=== PATIENT | male | born 1935 | race Hispanic/Latino ===

== ENCOUNTER 2017-08-27 17:56 | Observation (INO) | payer OTHER ==
[~2017-08-27] VITALS: Ht 167.6 cm; Wt 57.7 kg
[2017-08-27 18:16] LABS: BASOPHILS % (AUTO) 0.9 % (0.0-5.0); HEMATOCRIT 44.4 % (42-54); LYMPHOCYTES % (AUTO) 21.1 % (21.0-51.0); MEAN CORPUSCULAR HEMOGLOBIN 30.8 pg (27.0-33.0); MONOCYTES % (AUTO) 8.1 % (3.0-13.0); NEUTROPHILS % (AUTO) 67.9 % (40.0-77.0); PLATELET COUNT (AUTO) 202 K/uL (130-400); RED BLOOD CELL COUNT(AUTO) 5.05 MIL/uL (4.50-6.20); RED CELL DISTRIBUTION WIDTH 14.6 % (11.0-15.5); WHITE BLOOD COUNT (AUTO) 5.9 K/uL (4.8-10.8)
[2017-08-27 18:24] LABS: CREATININE 0.6 mg/dL (0.5-1.5); POTASSIUM 4.3 mmol/L (3.5-5.1)
[2017-08-27 18:27] LABS: INR 0.95 (0.85-1.15); PARTIAL THROMBOPLASTIN TIME 27.6 SEC (26.3-35.5)
[2017-08-27] MEDS ORDERED: SODIUM CHLORIDE 0.9% 1000ML 1,000 ML IV ONE (18:37)
[2017-08-27] MEDS ORDERED: HYDRALAZINE HCL 20 MG/ML VIAL ONE (18:37)
[2017-08-27 18:38] LABS: BILIRUBIN,TOTAL 0.5 mg/dL (0.2-1.0); CREATINE KINASE MB 5.3 ng/mL (0.5-3.6); TOTAL PROTEIN, SERUM 7.9 g/dL (6.0-8.3)
[2017-08-27 19:41] LABS: APPEARANCE,URINE Clear (CLEAR); BILIRUBIN,URINE Negative (NEGATIVE); COLOR,URINE Yellow (YELLOW); GLUCOSE, URINE (UA) Negative (NEGATIVE); KETONES,URINE 15 mg/dL (NEGATIVE); LEUKOCYTE ESTERASE ,URINE Negative (NEGATIVE); NITRATE,URINE Negative (NEGATIVE); OCCULT BLOOD,URINE Negative (NEGATIVE); PROTEIN,URINE Negative (NEGATIVE); UROBILINOGEN,URINE 0.2 mg/dL (0.2-1.0)
[2017-08-27] MEDS ORDERED: ASPIRIN 325 MG TABLET ONE (21:07)
[2017-08-28] MEDS ORDERED: HYDRALAZINE HCL 20 MG/ML VIAL ONE (01:16)
[2017-08-28] MEDS ORDERED: ONDANSETRON HCL 4 MG/2 ML VIAL IV PRN (02:30)
[2017-08-28] MEDS ORDERED: ACETAMINOPHEN 325 MG TAB PO PRN ×2 (02:30)
[2017-08-28] MEDS ORDERED: HYDRALAZINE HCL 20 MG/ML VIAL IV PRN (02:30)
[2017-08-28] MEDS ORDERED: ZOLPIDEM TARTRATE 5 MG TAB PO PRN (02:30)
[2017-08-28 05:11] LABS: HEMATOCRIT 41.4 % (42-54); MEAN CORPUSCULAR VOLUME 88.8 fL (79-99); PLATELET COUNT (AUTO) 181 K/uL (130-400); RED BLOOD CELL COUNT(AUTO) 4.67 MIL/uL (4.50-6.20); RED CELL DISTRIBUTION WIDTH 14.4 % (11.0-15.5)
[2017-08-28 05:33] LABS: CREATININE 0.4 mg/dL (0.5-1.5); MAGNESIUM 1.9 mg/dL (1.80-2.40); PHOSPHORUS 3.6 mg/dL (2.5-4.9); POTASSIUM 3.4 mmol/L (3.5-5.1); THYROID STIMULATING HORMONE 3.48 uIU/mL (0.36-3.74)
[2017-08-28] MEDS ORDERED: GADOBENATE DIMEGLUMINE 10 ML IV ONE (07:36)
[2017-08-28] MEDS: PANTOPRAZOLE SODIUM 40 MG TABLET.DR PO SCH (09:00)
[2017-08-28 09:30] VITALS: BP 164/66
[2017-08-28 11:00] VITALS: BP 160/74
[2017-08-28] MEDS ORDERED: OMEP20CA10 PO (11:00)
[2017-08-28] MEDS: ENOXAPARIN SODIUM 40 MG/0.4 ML SYRINGE SQ SCH (14:03)
[2017-08-28] MEDS: ASPIRIN 81 MG EC TAB PO SCH (14:03)
[2017-08-28] MEDS: AMLODIPINE BESYLATE 5 MG TAB PO SCH (14:03)
[2017-08-28 16:00] VITALS: BP 145/77
[2017-08-28 19:40] VITALS: BP 126/58
[2017-08-28 23:22] VITALS: BP 129/63
[2017-08-29 04:07] VITALS: BP 116/59
[2017-08-29 08:00] VITALS: BP_SYST 126; BP_SYST 145; BP_SYST 147; BP_DIAS 64; BP_DIAS 69; BP_DIAS 70
[2017-08-29] MEDS: ASPIRIN 81 MG EC TAB PO SCH (08:25)
[2017-08-29] MEDS: PANTOPRAZOLE SODIUM 40 MG TABLET.DR PO SCH (08:25)
[2017-08-29] MEDS: AMLODIPINE BESYLATE 5 MG TAB PO SCH (08:25)
[2017-08-29] MEDS: ENOXAPARIN SODIUM 40 MG/0.4 ML SYRINGE SQ SCH (08:28)
[2017-08-29 11:58] VITALS: BP 124/59
[2017-08-29 16:00] VITALS: BP 128/54
[2017-08-29 19:55] VITALS: BP 125/64
[2017-08-30] VITALS (8 sets, daily range): BP systolic 112–145; BP diastolic 53–81
[2017-08-30] MEDS: AMLODIPINE BESYLATE 5 MG TAB PO SCH (07:51)
[2017-08-30] MEDS: PANTOPRAZOLE SODIUM 40 MG TABLET.DR PO SCH (07:51)
[2017-08-30] MEDS: ASPIRIN 81 MG EC TAB PO SCH (07:51)
[2017-08-30] MEDS: ENOXAPARIN SODIUM 40 MG/0.4 ML SYRINGE SQ SCH (07:54)
[2017-08-30] MEDS ORDERED: AEC81 PO (13:37)
[2017-08-30] MEDS ORDERED: AMLO5TAB4 PO (13:37)
== END 2017-08-30 18:00 | disposition home or self-care (01) ==
LOC: EDH 17:56 → EDHIP 08-28 01:35 → INTOOBSV 08-28 01:35 → 2AH 08-28 09:02
PROVIDERS: ADMIT Family Medicine; ATTEND Family Medicine
DX: G45.9 Transient cerebral ischemic attack, unspecified (principal); G71.0 Muscular dystrophy; I10 Essential (primary) hypertension; K29.70 Gastritis, unspecified, without bleeding; L08.9 Local infection of the skin and subcutaneous tissue, unspecified; Z82.49 Family history of ischemic heart disease and other diseases of the circulatory system
CPT/HCPCS: 36415 ×2; 70450; 70553; 71045; 80048; 80053; 81003; 82550; 82553; 83735; 84100; 84443; 84484; 85025; 85027; 85610; 85730; 93005; 93306; 93880; 96372 ×2; 97116; 97161; 99285; A9577; G0378 ×28; G8978; G8979; G8980; G8981; G8982; G8983; J0360 ×2; J1650 ×2; J7030

== ENCOUNTER → 2018-11-05 | Outpatient (CLI) | payer OTHER ==
[~2018-11-05] MED LIST: AEC81 PO; AMLO5TAB4 PO; OMEP20CA10 PO
== END | disposition home or self-care (01) ==
LOC: SHCH 14:01
PROVIDERS: ATTEND Internal Medicine Cardiovascular Disease
DX: I65.23 Occlusion and stenosis of bilateral carotid arteries (principal)
CPT/HCPCS: 93880

== ENCOUNTER → 2019-09-16 | Outpatient (CLI) | payer OTHER ==
[~2019-09-16] MED LIST changes: -OMEP20CA10 PO; +OMEP20CA12 PO
== END | disposition home or self-care (01) ==
LOC: SHCH 14:08
PROVIDERS: ATTEND Internal Medicine Cardiovascular Disease
DX: I65.23 Occlusion and stenosis of bilateral carotid arteries (principal)
CPT/HCPCS: 93880

== ENCOUNTER → 2021-04-01 | Outpatient (CLI) | payer OTHER | END | disposition home or self-care (01) | LOC: SHCH 13:29 | PROVIDERS: ATTEND Internal Medicine Cardiovascular Disease | DX: I87.2 Venous insufficiency (chronic) (peripheral) (principal); K21.9 Gastro-esophageal reflux disease without esophagitis | CPT/HCPCS: 93970 ==

== ENCOUNTER 2021-05-19 13:00 | Inpatient (IN) | payer MEDICARE, OTHER ==
[~2021-05-19] VITALS: Ht 149.9 cm; Wt 54.4 kg
[2021-05-19 13:36] LABS: BASOPHILS % (AUTO) 0.6 % (0.0-5.0); EOSINOPHILS % (AUTO) 1.7 % (0.0-8.0); HEMATOCRIT 40.5 % (42-54); LYMPHOCYTES % (AUTO) 8.4 % (21.0-51.0); MEAN CORPUSCULAR HEMOGLOBIN 30.7 pg (27.0-33.0); MEAN CORPUSCULAR HGB CONC 33.1 g/dL (32.0-36.0); MEAN CORPUSCULAR VOLUME 92.7 fL (79-99); MONOCYTES % (AUTO) 6.6 % (3.0-13.0); NEUTROPHILS % (AUTO) 82.2 % (40.0-77.0); PLATELET COUNT (AUTO) 162 K/uL (130-400); RED BLOOD CELL COUNT(AUTO) 4.37 MIL/uL (4.50-6.20); RED CELL DISTRIBUTION WIDTH 13.2 % (11.0-15.5); WHITE BLOOD COUNT (AUTO) 7.7 K/uL (4.8-10.8)
[2021-05-19 13:44] LABS: CREATININE 0.7 mg/dL (0.5-1.5); POTASSIUM 4.7 mmol/L (3.5-5.1)
[2021-05-19 13:58] LABS: ALBUMIN 3.7 g/dL (3.5-5.0); BILIRUBIN,TOTAL 0.6 mg/dL (0.2-1.0); TOTAL PROTEIN, SERUM 7.6 g/dL (6.0-8.3)
[2021-05-19 14:19] LABS: APPEARANCE,URINE Clear (CLEAR); BILIRUBIN,URINE Negative (NEGATIVE); COLOR,URINE Yellow (YELLOW); GLUCOSE, URINE (UA) Negative (NEGATIVE); KETONES,URINE 15 mg/dL (NEGATIVE); LEUKOCYTE ESTERASE ,URINE Trace (NEGATIVE); NITRATE,URINE Negative (NEGATIVE); OCCULT BLOOD,URINE Moderate (NEGATIVE); PROTEIN,URINE Negative (NEGATIVE); UROBILINOGEN,URINE 0.2 mg/dL (0.2-1.0)
[2021-05-19 14:52] LABS: BACTERIA,URINE Rare /HPF (None Seen)
[2021-05-19 14:53] LABS: SQUAMOUS EPITHELIAL CELL,UR Rare /HPF (0-2)
[2021-05-19] MEDS ORDERED: ACETAMINOPHEN 325 MG TAB PO PRN ×2 (15:00)
[2021-05-19] MEDS ORDERED: DiphenhydrAMINE HCL 50 MG/ML VIAL IV PRN (15:00)
[2021-05-19] MEDS ORDERED: CEFTRIAXONE 1G VIAL IVP ONE (15:00)
[2021-05-19] MEDS ORDERED: ACETAMINOPHEN WITH CODEINE 1 TAB TAB PO PRN (15:00)
[2021-05-19] MEDS ORDERED: ONDANSETRON 4MG INJ IV PRN (15:00)
[2021-05-19] MEDS ORDERED: DIPHENHYDRAMINE HCL 25 MG CAPSULE PO PRN (15:00)
[2021-05-19] MEDS ORDERED: CEFTRIAXONE 1G VIAL ONE (16:15)
[2021-05-19] MEDS: CLINDAMYCIN IVPB 600MG/50ML 50 ML IV SCH ×2 (16:28→23:28)
[2021-05-19] MEDS: FAMOTIDINE 20MG VIAL IV SCH (20:46)
[2021-05-20] MEDS ORDERED: ATOR40TA71 PO (02:33)
[2021-05-20] MEDS ORDERED: DOCU100C33 PO (02:33)
[2021-05-20] MEDS ORDERED: ASPI-1012 PO (02:33)
[2021-05-20] MEDS ORDERED: LATA7.5D OP (02:33)
[2021-05-20 06:19] LABS: HEMATOCRIT 37.5 % (42-54); MEAN CORPUSCULAR HEMOGLOBIN 30.6 pg (27.0-33.0); MEAN CORPUSCULAR HGB CONC 33.1 g/dL (32.0-36.0); MEAN CORPUSCULAR VOLUME 92.6 fL (79-99); RED BLOOD CELL COUNT(AUTO) 4.05 MIL/uL (4.50-6.20); RED CELL DISTRIBUTION WIDTH 13.2 % (11.0-15.5); WHITE BLOOD COUNT (AUTO) 6.4 K/uL (4.8-10.8)
[2021-05-20 06:36] LABS: ALBUMIN 3.4 g/dL (3.5-5.0); BILIRUBIN,TOTAL 0.5 mg/dL (0.2-1.0); CREATININE 0.6 mg/dL (0.5-1.5); TOTAL PROTEIN, SERUM 6.8 g/dL (6.0-8.3)
[2021-05-20] MEDS: CLINDAMYCIN IVPB 600MG/50ML 50 ML IV SCH ×3 (07:02→23:59)
[2021-05-20] MEDS: FAMOTIDINE 20MG VIAL IV SCH ×2 (09:02→21:59)
[2021-05-20] MEDS: ENOXAPARIN SODIUM 30 MG/0.3 ML SQ SCH (09:03)
[2021-05-20] MEDS ORDERED: DOCUSATE SODIUM 100 MG CAP PO PRN (16:30)
[2021-05-20 21:18] LABS: BASOPHILS % (AUTO) 0.6 % (0.0-5.0); LYMPHOCYTES % (AUTO) 10.6 % (21.0-51.0); MEAN CORPUSCULAR HEMOGLOBIN 30.8 pg (27.0-33.0); MEAN CORPUSCULAR HGB CONC 33.6 g/dL (32.0-36.0); MEAN CORPUSCULAR VOLUME 91.8 fL (79-99); NEUTROPHILS % (AUTO) 75.3 % (40.0-77.0); PLATELET COUNT (AUTO) 159 K/uL (130-400); RED BLOOD CELL COUNT(AUTO) 4.25 MIL/uL (4.50-6.20); RED CELL DISTRIBUTION WIDTH 13.2 % (11.0-15.5); WHITE BLOOD COUNT (AUTO) 6.3 K/uL (4.8-10.8)
[2021-05-20 21:36] LABS: CREATININE 0.6 mg/dL (0.5-1.5); POTASSIUM 4.7 mmol/L (3.5-5.1)
[2021-05-20 21:39] LABS: ABG HCO3 19.6 mmol/L (21.0-28.0); ABG OXYGEN SATURATION 97.1 % (95.0-99.0); ABG PCO2 32 mmHg (35-48)
[2021-05-20 21:41] LABS: ALBUMIN 3.6 g/dL (3.5-5.0); BILIRUBIN,TOTAL 0.6 mg/dL (0.2-1.0); MAGNESIUM 2.1 mg/dL (1.80-2.40); PHOSPHORUS 4.1 mg/dL (2.5-4.9); TOTAL PROTEIN, SERUM 7.4 g/dL (6.0-8.3)
[2021-05-20] MEDS: LATANOPROST 2.5 ML DROPS OP SCH (21:59)
[2021-05-20] MEDS: ATORVASTATIN 40 MG TABLET PO SCH (21:59)
[2021-05-20 22:02] LABS: APPEARANCE,URINE Clear (CLEAR); BILIRUBIN,URINE Negative (NEGATIVE); COLOR,URINE Yellow (YELLOW); GLUCOSE, URINE (UA) Negative (NEGATIVE); KETONES,URINE 15 mg/dL (NEGATIVE); LEUKOCYTE ESTERASE ,URINE Negative (NEGATIVE); NITRATE,URINE Negative (NEGATIVE); OCCULT BLOOD,URINE Negative (NEGATIVE); PROTEIN,URINE Negative (NEGATIVE); UROBILINOGEN,URINE 0.2 mg/dL (0.2-1.0)
[2021-05-20 22:10] LABS: AMPHET/METH SCREEN,URINE NEGATIVE (NEGATIVE); BARBITURATE SCREEN, URINE NEGATIVE (NEGATIVE); BENZODIAZEPINES SCREEN,URINE NEGATIVE (NEGATIVE); CANNABINOID SCREEN,URINE NEGATIVE (NEGATIVE); COCAINE SCREEN,URINE NEGATIVE (NEGATIVE); OPIATE SCREEN,URINE NEGATIVE (NEGATIVE); PHENCYCLIDINE SCREEN,URINE NEGATIVE (NEGATIVE)
[2021-05-20 23:04] LABS: AMMONIA < 10 umol/L (11-32)
[2021-05-21] VITALS (7 sets, daily range): BP systolic 137–165; BP diastolic 56–79
[2021-05-21] MEDS: CLINDAMYCIN IVPB 600MG/50ML 50 ML IV SCH (00:01)
[2021-05-21 06:21] LABS: HEMATOCRIT 39.1 % (42-54); MEAN CORPUSCULAR HEMOGLOBIN 30.6 pg (27.0-33.0); MEAN CORPUSCULAR HGB CONC 33.5 g/dL (32.0-36.0); MEAN CORPUSCULAR VOLUME 91.4 fL (79-99); RED BLOOD CELL COUNT(AUTO) 4.28 MIL/uL (4.50-6.20); RED CELL DISTRIBUTION WIDTH 13.3 % (11.0-15.5); WHITE BLOOD COUNT (AUTO) 6.6 K/uL (4.8-10.8)
[2021-05-21 06:41] LABS: CREATININE 0.6 mg/dL (0.5-1.5); POTASSIUM 4.2 mmol/L (3.5-5.1)
[2021-05-21] MEDS: ASPIRIN 81 MG EC TAB PO SCH (08:14)
[2021-05-21] MEDS: FAMOTIDINE 20MG VIAL IV SCH (08:14)
[2021-05-21] MEDS: ENOXAPARIN SODIUM 30 MG/0.3 ML SQ SCH (08:15)
[2021-05-21] MEDS: CEFTRIAXONE 2GM VIAL IVP SCH (11:25)
[2021-05-21] MEDS ORDERED: VANCOMYCIN PROTOCOL PER PHARMACY IV SCH (14:00)
[2021-05-21] MEDS: 0.9% NACL 250ML 250 ML IV SCH (17:11)
[2021-05-21] MEDS: VANCOMYCIN 750MG VIAL IVPB SCH (17:12)
[2021-05-21] MEDS ORDERED: PANTOPRAZOLE 40 MG TAB DR PO SCH (19:30)
[2021-05-21] MEDS: ATORVASTATIN 40 MG TABLET PO SCH (21:19)
[2021-05-21] MEDS: ENOXAPARIN SODIUM 60 MG/0.6 ML SQ SCH (21:20)
[2021-05-21] MEDS: LATANOPROST 2.5 ML DROPS OP SCH (21:28)
[2021-05-22 03:43] VITALS: BP 144/56
[2021-05-22] MEDS: VANCOMYCIN 750MG VIAL IVPB SCH ×2 (05:34→16:39)
[2021-05-22] MEDS: 0.9% NACL 250ML 250 ML IV SCH ×2 (05:34→16:39)
[2021-05-22 06:38] LABS: BASOPHILS % (AUTO) 0.8 % (0.0-5.0); EOSINOPHILS % (AUTO) 9.7 % (0.0-8.0); HEMATOCRIT 35.5 % (42-54); MEAN CORPUSCULAR HEMOGLOBIN 30.6 pg (27.0-33.0); MEAN CORPUSCULAR HGB CONC 33.2 g/dL (32.0-36.0); MEAN CORPUSCULAR VOLUME 92.2 fL (79-99); MONOCYTES % (AUTO) 11.4 % (3.0-13.0); NEUTROPHILS % (AUTO) 58.7 % (40.0-77.0); PLATELET COUNT (AUTO) 164 K/uL (130-400); RED BLOOD CELL COUNT(AUTO) 3.85 MIL/uL (4.50-6.20); RED CELL DISTRIBUTION WIDTH 13.6 % (11.0-15.5); WHITE BLOOD COUNT (AUTO) 5.2 K/uL (4.8-10.8)
[2021-05-22 06:42] LABS: CREATININE 0.6 mg/dL (0.5-1.5); POTASSIUM 3.9 mmol/L (3.5-5.1)
[2021-05-22] MEDS: ASPIRIN 81 MG EC TAB PO SCH (08:30)
[2021-05-22] MEDS: PANTOPRAZOLE 40 MG TAB DR PO SCH (08:30)
[2021-05-22] MEDS: ENOXAPARIN SODIUM 60 MG/0.6 ML SQ SCH (08:31)
[2021-05-22 08:51] VITALS: BP 124/70
[2021-05-22] MEDS: CEFTRIAXONE 2GM VIAL IVP SCH (11:04)
[2021-05-22 11:38] VITALS: BP 127/48
[2021-05-22 17:01] VITALS: BP 143/48
[2021-05-22 20:24] VITALS: BP 143/42
[2021-05-22] MEDS: ATORVASTATIN 40 MG TABLET PO SCH (21:00)
[2021-05-22] MEDS: APIXABAN 5 MG TABLET PO SCH (21:00)
[2021-05-22] MEDS: LATANOPROST 2.5 ML DROPS OP SCH (21:03)
[2021-05-23] VITALS (7 sets, daily range): BP systolic 128–161; BP diastolic 40–61
[2021-05-23] MEDS: VANCOMYCIN 750MG VIAL IVPB SCH ×2 (05:11→17:03)
[2021-05-23] MEDS: 0.9% NACL 250ML 250 ML IV SCH ×2 (05:11→17:03)
[2021-05-23 06:40] LABS: BASOPHILS % (AUTO) 0.7 % (0.0-5.0); EOSINOPHILS % (AUTO) 9.9 % (0.0-8.0); HEMATOCRIT 35.7 % (42-54); LYMPHOCYTES % (AUTO) 20.9 % (21.0-51.0); MEAN CORPUSCULAR HEMOGLOBIN 30.4 pg (27.0-33.0); MEAN CORPUSCULAR HGB CONC 33.3 g/dL (32.0-36.0); MEAN CORPUSCULAR VOLUME 91.1 fL (79-99); MONOCYTES % (AUTO) 9.7 % (3.0-13.0); NEUTROPHILS % (AUTO) 58.6 % (40.0-77.0); PLATELET COUNT (AUTO) 159 K/uL (130-400); RED BLOOD CELL COUNT(AUTO) 3.92 MIL/uL (4.50-6.20); RED CELL DISTRIBUTION WIDTH 13.4 % (11.0-15.5); WHITE BLOOD COUNT (AUTO) 4.4 K/uL (4.8-10.8)
[2021-05-23 06:53] LABS: CREATININE 0.6 mg/dL (0.5-1.5); POTASSIUM 4.4 mmol/L (3.5-5.1)
[2021-05-23] MEDS: ASPIRIN 81 MG EC TAB PO SCH (10:01)
[2021-05-23] MEDS: APIXABAN 5 MG TABLET PO SCH ×2 (10:01→20:28)
[2021-05-23] MEDS: POLYETHYLENE GLYCOL 3350 17 GM POWD.PACK PO SCH (10:01)
[2021-05-23] MEDS: PANTOPRAZOLE 40 MG TAB DR PO SCH (10:01)
[2021-05-23] MEDS: CEFTRIAXONE 2GM VIAL IVP SCH (10:01)
[2021-05-23] MEDS: ATORVASTATIN 40 MG TABLET PO SCH (20:28)
[2021-05-23] MEDS: LATANOPROST 2.5 ML DROPS OP SCH (20:29)
[2021-05-24 04:00] VITALS: BP 110/59
[2021-05-24] MEDS: 0.9% NACL 250ML 250 ML IV SCH ×2 (04:45→16:22)
[2021-05-24] MEDS: VANCOMYCIN 750MG VIAL IVPB SCH ×2 (04:45→16:22)
[2021-05-24 05:43] LABS: BASOPHILS % (AUTO) 0.6 % (0.0-5.0); EOSINOPHILS % (AUTO) 8.3 % (0.0-8.0); HEMATOCRIT 35.6 % (42-54); LYMPHOCYTES % (AUTO) 18.7 % (21.0-51.0); MEAN CORPUSCULAR HEMOGLOBIN 30.7 pg (27.0-33.0); MEAN CORPUSCULAR HGB CONC 33.1 g/dL (32.0-36.0); MEAN CORPUSCULAR VOLUME 92.7 fL (79-99); MONOCYTES % (AUTO) 9.6 % (3.0-13.0); NEUTROPHILS % (AUTO) 62.4 % (40.0-77.0); PLATELET COUNT (AUTO) 161 K/uL (130-400); RED BLOOD CELL COUNT(AUTO) 3.84 MIL/uL (4.50-6.20); RED CELL DISTRIBUTION WIDTH 13.3 % (11.0-15.5); WHITE BLOOD COUNT (AUTO) 5.1 K/uL (4.8-10.8)
[2021-05-24 05:52] LABS: CREATININE 0.7 mg/dL (0.5-1.5); POTASSIUM 4.1 mmol/L (3.5-5.1)
[2021-05-24 07:54] VITALS: BP 134/56
[2021-05-24] MEDS: POLYETHYLENE GLYCOL 3350 17 GM POWD.PACK PO SCH (09:00)
[2021-05-24] MEDS: ASPIRIN 81 MG EC TAB PO SCH (09:12)
[2021-05-24] MEDS: APIXABAN 5 MG TABLET PO SCH ×2 (09:12→20:25)
[2021-05-24] MEDS: PANTOPRAZOLE 40 MG TAB DR PO SCH (09:12)
[2021-05-24] MEDS: CEFTRIAXONE 2GM VIAL IVP SCH (11:45)
[2021-05-24 12:00] VITALS: BP 145/52
[2021-05-24 16:00] VITALS: BP 157/35
[2021-05-24 19:54] VITALS: BP 121/45
[2021-05-24] MEDS: LATANOPROST 2.5 ML DROPS OP SCH (20:25)
[2021-05-24] MEDS: ATORVASTATIN 40 MG TABLET PO SCH (20:25)
[2021-05-24 23:08] VITALS: BP 118/45
[2021-05-25 03:45] VITALS: BP 145/49
[2021-05-25 05:09] LABS: BASOPHILS % (AUTO) 0.9 % (0.0-5.0); EOSINOPHILS % (AUTO) 8.8 % (0.0-8.0); LYMPHOCYTES % (AUTO) 19.5 % (21.0-51.0); MEAN CORPUSCULAR HEMOGLOBIN 30.5 pg (27.0-33.0); MEAN CORPUSCULAR HGB CONC 33.4 g/dL (32.0-36.0); MEAN CORPUSCULAR VOLUME 91.4 fL (79-99); MONOCYTES % (AUTO) 12.2 % (3.0-13.0); NEUTROPHILS % (AUTO) 58.2 % (40.0-77.0); PLATELET COUNT (AUTO) 183 K/uL (130-400); RED BLOOD CELL COUNT(AUTO) 3.83 MIL/uL (4.50-6.20); RED CELL DISTRIBUTION WIDTH 13.4 % (11.0-15.5); WHITE BLOOD COUNT (AUTO) 4.7 K/uL (4.8-10.8)
[2021-05-25 05:21] LABS: CREATININE 0.6 mg/dL (0.5-1.5); POTASSIUM 4.1 mmol/L (3.5-5.1)
[2021-05-25] MEDS: 0.9% NACL 250ML 250 ML IV SCH (05:30)
[2021-05-25] MEDS: VANCOMYCIN 750MG VIAL IVPB SCH (05:30)
[2021-05-25 08:00] VITALS: BP 136/62
[2021-05-25] MEDS ORDERED: AMLODIPINE 5 MG TAB PO SCH (09:00)
[2021-05-25] MEDS: APIXABAN 5 MG TABLET PO SCH (09:52)
[2021-05-25] MEDS: POLYETHYLENE GLYCOL 3350 17 GM POWD.PACK PO SCH (09:52)
[2021-05-25] MEDS: ASPIRIN 81 MG EC TAB PO SCH (09:53)
[2021-05-25] MEDS: PANTOPRAZOLE 40 MG TAB DR PO SCH (09:53)
[2021-05-25] MEDS ORDERED: APIX5TAB PO (11:42)
[2021-05-25 12:00] VITALS: BP 118/60
[2021-05-25] MEDS: CEFTRIAXONE 2GM VIAL IVP SCH (12:03)
[2021-05-25 16:00] VITALS: BP 114/49
[2021-05-26] MEDS ORDERED: VANCOMYCIN 500MG+NS 100ML 100 ML IV SCH (09:00)
== END 2021-05-25 19:30 | DRG 603 ==
LOC: EDH 13:00 → EDHIP 14:47 → 3AH 05-21 01:23
PROVIDERS: ADMIT Hospitalist; ATTEND Hospitalist
DX: L03.116 Cellulitis of left lower limb (principal); I82.812 Embolism and thrombosis of superficial veins of left lower extremity; I82.412 Acute embolism and thrombosis of left femoral vein; G71.00 Muscular dystrophy, unspecified; I10 Essential (primary) hypertension; Z20.822 Contact with and (suspected) exposure to COVID-19; I25.10 Atherosclerotic heart disease of native coronary artery without angina pectoris; E78.5 Hyperlipidemia, unspecified; E11.51 Type 2 diabetes mellitus with diabetic peripheral angiopathy without gangrene; R58 Hemorrhage, not elsewhere classified; R13.12 Dysphagia, oropharyngeal phase; R53.81 Other malaise; H40.9 Unspecified glaucoma; G89.29 Other chronic pain; Z79.01 Long term (current) use of anticoagulants; Z83.3 Family history of diabetes mellitus; Z83.438 Family history of other disorder of lipoprotein metabolism and other lipidemia; Z83.6 Family history of other diseases of the respiratory system; Z82.49 Family history of ischemic heart disease and other diseases of the circulatory system; Z80.9 Family history of malignant neoplasm, unspecified
CPT/HCPCS: 36415; 36600; 70450; 70551; 71045; 73700; 74230; 80048; 80053; 80202; 80305; 81001; 81003; 82140; 82330; 82435; 82550; 82803; 82947; 82948; 83605; 83735; 83874; 84100; 84132; 84145; 84295; 84484; 85018; 85025; 85027; 85651; 86140; 87635; 92610; 92611; 93005; 93971; 99291; G0378; J0696; J1650; J3490; J7050

== ENCOUNTER 2023-06-15 17:55 | Emergency (ER) | payer OTHER ==
[~2023-06-15] VITALS: Ht 167.6 cm; Wt 56.7 kg
[~2023-06-15 17:55] MED LIST changes: -AEC81 PO; +ASPI-1521 PO; +ATOR40TA71 PO; +DOCU100C33 PO; +LATA7.5D OP; +LOSA-417 PO; +METF-444 PO
[2023-06-15 18:54] LABS: BASOPHILS # (AUTO) 0.05 K/uL (0.00-0.20); BASOPHILS % (AUTO) 0.6 % (0.0-5.0); EOSINOPHILS # (AUTO) 0.11 K/uL (0.00-0.70); EOSINOPHILS % (AUTO) 1.3 % (0.0-8.0); HEMATOCRIT 37.8 % (42-54); IMMATURE GRANULOCYTE ABSOLUTE 0.12 K/uL (0-1); LYMPHOCYTES # (AUTO) 0.7 K/uL (1.0-4.8); LYMPHOCYTES % (AUTO) 8.8 % (21.0-51.0); MEAN CORPUSCULAR HEMOGLOBIN 28.8 pg (27.0-33.0); MEAN CORPUSCULAR HGB CONC 33.3 g/dL (32.0-36.0); MEAN CORPUSCULAR VOLUME 86.5 fL (79-99); MONOCYTES # (AUTO) 0.7 K/uL (0.1-1.0); MONOCYTES % (AUTO) 8.8 % (3.0-13.0); NEUTROPHILS # (AUTO) 6.5 K/uL (1.8-7.7); PLATELET COUNT (AUTO) 188 K/uL (130-400); RED BLOOD CELL COUNT(AUTO) 4.37 MIL/uL (4.50-6.20); RED CELL DISTRIBUTION WIDTH 14.7 % (11.0-15.5); WHITE BLOOD COUNT (AUTO) 8.2 K/uL (4.8-10.8)
[2023-06-15 19:06] LABS: CREATININE 0.6 mg/dL (0.5-1.5); POTASSIUM 4.8 mmol/L (3.5-5.1)
[2023-06-15 19:11] LABS: ALBUMIN 2.3 g/dL (3.5-5.0); BILIRUBIN,TOTAL 0.4 mg/dL (0.2-1.0); TOTAL PROTEIN, SERUM 6.5 g/dL (6.0-8.3)
[2023-06-15] MEDS ORDERED: 0.9%NACL 1000ML 1,000 ML IV ONE (19:30)
[2023-06-15] MEDS ORDERED: IOHEXOL-350 75 ML VIAL IV ONE (19:49)
[2023-06-15 19:56] LABS: AMYLASE 169 U/L (25-115)
[2023-06-15 20:43] LABS: BILIRUBIN,URINE NEGATIVE (NEGATIVE); GLUCOSE, URINE (UA) NEGATIVE (NEGATIVE); KETONES,URINE NEGATIVE (NEGATIVE); LEUKOCYTE ESTERASE ,URINE NEGATIVE Leu/uL (NEGATIVE); NITRATE,URINE NEGATIVE (NEGATIVE); OCCULT BLOOD,URINE LARGE (NEGATIVE); PROTEIN,URINE NEGATIVE (NEGATIVE); UROBILINOGEN,URINE 0.2 mg/dL (0.2-1.0)
[2023-06-15 20:47] LABS: ADD UA MICROSCOPIC YES; APPEARANCE,URINE HAZY (CLEAR); COLOR,URINE YELLOW (YELLOW)
[2023-06-15 20:53] LABS: RBC,URINE TNTC /HPF (0-1); SQUAMOUS EPITHELIAL CELL,UR RARE /HPF (0-2); WBC,URINE 0-1 /HPF (0-1)
[2023-06-15 21:54] VITALS: BP 115/53; PULSE 67; RESP 14; O2SAT 97
== END 2023-06-15 21:58 | disposition home or self-care (01) ==
LOC: EDH 17:55
DX: N39.0 Urinary tract infection, site not specified (principal); I10 Essential (primary) hypertension; E11.9 Type 2 diabetes mellitus without complications; J18.9 Pneumonia, unspecified organism; Z79.82 Long term (current) use of aspirin; Z79.84 Long term (current) use of oral hypoglycemic drugs; Z79.899 Other long term (current) drug therapy; Z98.890 Other specified postprocedural states
CPT/HCPCS: 99285; 74177; 96360; 71045; 96361; 82150; 84484; 80053; 83690; 85025; 83605; 81001; 36415; 51701; 93005; Q9967

== ENCOUNTER 2023-08-01 14:15 | Inpatient (IN) | payer OTHER ==
[~2023-08-01] VITALS: Ht 167.6 cm; Wt 54.7 kg
[2023-08-01 14:59] LABS: BASOPHILS # (AUTO) 0.05 K/uL (0.00-0.20); BASOPHILS % (AUTO) 1.1 % (0.0-5.0); EOSINOPHILS # (AUTO) 0.76 K/uL (0.00-0.70); EOSINOPHILS % (AUTO) 16.6 % (0.0-8.0); IMMATURE GRANULOCYTE ABSOLUTE 0.01 K/uL (0-1); LYMPHOCYTES # (AUTO) 1.2 K/uL (1.0-4.8); LYMPHOCYTES % (AUTO) 25.5 % (21.0-51.0); MEAN CORPUSCULAR HEMOGLOBIN 29.8 pg (27.0-33.0); MEAN CORPUSCULAR HGB CONC 32.5 g/dL (32.0-36.0); MEAN CORPUSCULAR VOLUME 91.6 fL (79-99); MONOCYTES # (AUTO) 0.5 K/uL (0.1-1.0); MONOCYTES % (AUTO) 11.8 % (3.0-13.0); NEUTROPHILS # (AUTO) 2.1 K/uL (1.8-7.7); NEUTROPHILS % (AUTO) 44.8 % (40.0-77.0); PLATELET COUNT (AUTO) 143 K/uL (130-400); RED BLOOD CELL COUNT(AUTO) 2.62 MIL/uL (4.50-6.20); RED CELL DISTRIBUTION WIDTH 15.9 % (11.0-15.5); WHITE BLOOD COUNT (AUTO) 4.6 K/uL (4.8-10.8)
[2023-08-01 15:10] LABS: ALBUMIN 2.7 g/dL (3.5-5.0); BILIRUBIN,TOTAL 0.3 mg/dL (0.2-1.0); CREATININE 1.1 mg/dL (0.5-1.5); POTASSIUM 4.9 mmol/L (3.5-5.1); TOTAL PROTEIN, SERUM 6.8 g/dL (6.0-8.3)
[2023-08-01] MEDS ORDERED: ONDANSETRON 4MG INJ IV PRN (20:00)
[2023-08-01] MEDS ORDERED: POTASSIUM CHLORIDE 20MEQ/100ML 100 ML IV PRN (20:30)
[2023-08-01] MEDS ORDERED: GLUCAGON 1MG KIT 1 MG ML IM PRN (20:30)
[2023-08-01] MEDS ORDERED: ATOR40TA71 PEG (21:46)
[2023-08-01] MEDS ORDERED: DOXA2TAB2 PEG (21:46)
[2023-08-01] MEDS ORDERED: FINA5TAB41 PEG (21:46)
[2023-08-01] MEDS ORDERED: AEC81 PEG (21:46)
[2023-08-01] MEDS: 0.9%NACL 1000ML 1,000 ML IV SCH (21:51)
[2023-08-01] MEDS: PANTOPRAZOLE 40 MG/VIAL IVP SCH (21:51)
[2023-08-01 22:00] VITALS: BP 128/58; PULSE 65; RESP 16
[2023-08-02] VITALS (9 sets, daily range): BP systolic 103–141; BP diastolic 46–65; PULSE 56–83; RESP 16–18; O2SAT 95–99
[2023-08-02] MEDS: INSULIN HUMULIN R 100 UNIT/ML 3ML SQ SCH
[2023-08-02 05:41] LABS: BASOPHILS # (AUTO) 0.04 K/uL (0.00-0.20); BASOPHILS % (AUTO) 0.7 % (0.0-5.0); EOSINOPHILS # (AUTO) 0.88 K/uL (0.00-0.70); EOSINOPHILS % (AUTO) 14.7 % (0.0-8.0); HEMATOCRIT 23.8 % (42-54); IMMATURE GRANULOCYTE ABSOLUTE 0.03 K/uL (0-1); LYMPHOCYTES # (AUTO) 1.1 K/uL (1.0-4.8); LYMPHOCYTES % (AUTO) 17.7 % (21.0-51.0); MEAN CORPUSCULAR HGB CONC 32.8 g/dL (32.0-36.0); MEAN CORPUSCULAR VOLUME 91.5 fL (79-99); MONOCYTES # (AUTO) 0.5 K/uL (0.1-1.0); NEUTROPHILS # (AUTO) 3.5 K/uL (1.8-7.7); NEUTROPHILS % (AUTO) 57.4 % (40.0-77.0); PLATELET COUNT (AUTO) 130 K/uL (130-400); RED CELL DISTRIBUTION WIDTH 16.1 % (11.0-15.5)
[2023-08-02 06:01] LABS: ALBUMIN 2.5 g/dL (3.5-5.0); BILIRUBIN,TOTAL 0.4 mg/dL (0.2-1.0); MAGNESIUM 1.9 mg/dL (1.80-2.40); POTASSIUM 4.7 mmol/L (3.5-5.1); TOTAL PROTEIN, SERUM 6.4 g/dL (6.0-8.3)
[2023-08-02 06:06] LABS: % IRON SATURATION 13.6 % (30-44)
[2023-08-02 08:10] LABS: HEMATOCRIT 24.8 % (42-54)
[2023-08-02] MEDS: LACTATED RINGERS 1000ML 1,000 ML IV SCH (13:09)
[2023-08-02 14:51] LABS: HEMATOCRIT 25.9 % (42-54)
[2023-08-02 15:57] LABS: SARS-CoV-2, RNA, NAAT NEGATIVE SARS CoV-2 (NEGATIVE)
[2023-08-02 19:48] LABS: HEMATOCRIT 24.2 % (42-54)
[2023-08-02] MEDS: BALSAM PERU/CASTOR OIL 60 GM TUBE TP SCH (22:21)
[2023-08-03] VITALS (29 sets, daily range): BP systolic 129–159; BP diastolic 41–85; PULSE 52–129; RESP 10–18; O2SAT 97–100
[2023-08-03] MEDS: DEXTROSE 50%-WATER 50 ML DISP.SYRIN IV PRN (00:20)
[2023-08-03 01:49] LABS: HEMATOCRIT 23.3 % (42-54)
[2023-08-03] MEDS: DEXTROSE 5 %-0.45 % NACL 1,000 ML IV SCH (12:57)
[2023-08-03] MEDS ORDERED: PROPOFOL 10 MG/ML 20ML VIAL IV ONE (14:37)
[2023-08-03] MEDS: PEG 3350/NA SULF,BICARB,CL/KCL 4000 ML SOLN PO ONE (17:29)
[2023-08-03] MEDS: LACTULOSE 20 GM/30 ML UDCUP PO ONE ×2 (17:29→19:54)
[2023-08-03] MEDS: INSULIN HUMULIN R 100 UNIT/ML 3ML SQ SCH (20:17)
[2023-08-03] MEDS ORDERED: POTASSIUM CHLORIDE 10% ELIXIR 20 MEQ/15 ML UDCUP PO PRN (22:00)
[2023-08-03] MEDS ORDERED: KCL 20 MEQ ERTAB PO PRN (22:00)
[2023-08-04] VITALS (9 sets, daily range): BP systolic 104–141; BP diastolic 49–72; PULSE 52–67; RESP 14–18; O2SAT 98–100
[2023-08-04 12:34] LABS: HEMATOCRIT 21.2 % (42-54); MEAN CORPUSCULAR HEMOGLOBIN 30.4 pg (27.0-33.0); MEAN CORPUSCULAR HGB CONC 34.4 g/dL (32.0-36.0); MEAN CORPUSCULAR VOLUME 88.3 fL (79-99); RED BLOOD CELL COUNT(AUTO) 2.4 MIL/uL (4.50-6.20); RED CELL DISTRIBUTION WIDTH 15.7 % (11.0-15.5); WHITE BLOOD COUNT (AUTO) 4.5 K/uL (4.8-10.8)
[2023-08-04 12:44] LABS: CREATININE 0.7 mg/dL (0.5-1.5); POTASSIUM 3.9 mmol/L (3.5-5.1)
[2023-08-04 12:53] LABS: ALBUMIN 2.1 g/dL (3.5-5.0); BILIRUBIN,TOTAL 0.2 mg/dL (0.2-1.0); MAGNESIUM 1.4 mg/dL (1.80-2.40); TOTAL PROTEIN, SERUM 5.6 g/dL (6.0-8.3)
[2023-08-04] MEDS: MAGNESIUM 2GM PREMIX 50ML 50 ML IV PRN (18:45)
[2023-08-05] VITALS (8 sets, daily range): BP systolic 111–139; BP diastolic 43–75; PULSE 62–69; RESP 14–19; O2SAT 99–100
[2023-08-05] MEDS ORDERED: PANT40TA PO (12:40)
[2023-08-06 03:55] VITALS: BP 120/61; PULSE 60; RESP 18
[2023-08-06 08:00] VITALS: BP 129/49; PULSE 63; RESP 18; O2SAT 100
[2023-08-06 12:00] VITALS: BP 120/54; PULSE 66; RESP 18
[2023-08-06 16:00] VITALS: BP 134/58; PULSE 70; RESP 16
== END 2023-08-06 17:00 | disposition home health service (06) | DRG 377 ==
LOC: EDH 14:15 → EDHIP 19:53 → 3AH 21:21
PROVIDERS: ADMIT Internal Medicine; ATTEND Internal Medicine
PROC: 0DB98ZX Excision of Duodenum, Via Natural or Artificial Opening Endoscopic, Diagnostic (ICD-10-PCS; principal; 2023-08-03)
PROC: 0DB68ZX Excision of Stomach, Via Natural or Artificial Opening Endoscopic, Diagnostic (ICD-10-PCS; 2023-08-03)
PROC: 0DB38ZX Excision of Lower Esophagus, Via Natural or Artificial Opening Endoscopic, Diagnostic (ICD-10-PCS; 2023-08-03)
DX: K29.01 Acute gastritis with bleeding (principal); R53.2 Functional quadriplegia; E44.0 Moderate protein-calorie malnutrition; N17.9 Acute kidney failure, unspecified; D62 Acute posthemorrhagic anemia; Z68.1 Body mass index [BMI] 19.9 or less, adult; Z20.822 Contact with and (suspected) exposure to COVID-19; E86.0 Dehydration; R53.81 Other malaise; K21.9 Gastro-esophageal reflux disease without esophagitis; L98.429 Non-pressure chronic ulcer of back with unspecified severity; G71.00 Muscular dystrophy, unspecified; E11.9 Type 2 diabetes mellitus without complications; E78.00 Pure hypercholesterolemia, unspecified; E83.42 Hypomagnesemia; I10 Essential (primary) hypertension; R13.12 Dysphagia, oropharyngeal phase; R32 Unspecified urinary incontinence; Z74.01 Bed confinement status; Z82.49 Family history of ischemic heart disease and other diseases of the circulatory system; Z82.5 Family history of asthma and other chronic lower respiratory diseases; Z86.73 Personal history of transient ischemic attack (TIA), and cerebral infarction without residual deficits; Z93.1 Gastrostomy status; Z79.84 Long term (current) use of oral hypoglycemic drugs; K21.00 Gastro-esophageal reflux disease with esophagitis, without bleeding
CPT/HCPCS: 36415; 43239; 80053; 82270; 82306; 82607; 82746; 82948; 83540; 83550; 83735; 85014; 85018; 85025; 85027; 86850; 86900; 86901; 87635; 96374; C9113; G0378; J2704; J3475; J7030; J7042; J7070; J7120; A4215; A4222; A4223; A4620; A7002; J3490

== ENCOUNTER 2023-10-30 17:53 | Observation (INO) | payer MEDICARE, OTHER ==
[~2023-10-30] VITALS: Ht 170.2 cm; Wt 74.4 kg
[~2023-10-30 17:53] MED LIST changes: +AEC81 PEG; -ASPI-1521 PO; +ATOR40TA71 PEG; -ATOR40TA71 PO; -DOCU100C33 PO; +DOXA2TAB2 PEG; +FINA5TAB41 PEG; -LATA7.5D OP; -METF-444 PO; -OMEP20CA12 PO; +PANT40TA PO
[2023-10-30 19:41] LABS: APPEARANCE,URINE CLOUDY (CLEAR); BILIRUBIN,URINE NEGATIVE (NEGATIVE); COLOR,URINE LIGHT-YELLOW (YELLOW); GLUCOSE, URINE (UA) NEGATIVE (NEGATIVE); KETONES,URINE NEGATIVE (NEGATIVE); LEUKOCYTE ESTERASE ,URINE 500 Leu/uL (NEGATIVE); NITRATE,URINE 2+ (NEGATIVE); OCCULT BLOOD,URINE SMALL (NEGATIVE); PH,URINE 6.5 (5.0-8.0); PROTEIN,URINE 20 mg/dL (NEGATIVE); UROBILINOGEN,URINE 0.2 mg/dL (0.2-1.0)
[2023-10-30 19:47] LABS: ADD UA MICROSCOPIC YES
[2023-10-30 19:53] LABS: BACTERIA,URINE MOD /HPF (None Seen); MUCUS,URINE RARE LPF (None Seen); SQUAMOUS EPITHELIAL CELL,UR RARE /HPF (0-2); WBC CLUMP FEW /HPF (0-1); WBC,URINE 26-50 /HPF (0-1)
[2023-10-30] MEDS: 0.9%NACL 1000ML 1,983 ML IV ONE (20:22)
[2023-10-30 20:27] LABS: BASOPHILS # (AUTO) 0.06 K/uL (0.00-0.20); BASOPHILS % (AUTO) 0.8 % (0.0-5.0); EOSINOPHILS % (AUTO) 19.8 % (0.0-8.0); HEMATOCRIT 28.6 % (42-54); IMMATURE GRANULOCYTE ABSOLUTE 0.06 K/uL (0-1); LYMPHOCYTES # (AUTO) 1.3 K/uL (1.0-4.8); LYMPHOCYTES % (AUTO) 16.7 % (21.0-51.0); MEAN CORPUSCULAR HEMOGLOBIN 30.1 pg (27.0-33.0); MEAN CORPUSCULAR HGB CONC 33.6 g/dL (32.0-36.0); MEAN CORPUSCULAR VOLUME 89.7 fL (79-99); MONOCYTES # (AUTO) 0.5 K/uL (0.1-1.0); MONOCYTES % (AUTO) 6.3 % (3.0-13.0); NEUTROPHILS # (AUTO) 4.2 K/uL (1.8-7.7); NEUTROPHILS % (AUTO) 55.6 % (40.0-77.0); PLATELET COUNT (AUTO) 203 K/uL (130-400); RED BLOOD CELL COUNT(AUTO) 3.19 MIL/uL (4.50-6.20); RED CELL DISTRIBUTION WIDTH 12.9 % (11.0-15.5); WHITE BLOOD COUNT (AUTO) 7.6 K/uL (4.8-10.8)
[2023-10-30 20:45] LABS: ALBUMIN 2.9 g/dL (3.5-5.0); BILIRUBIN,TOTAL 0.2 mg/dL (0.2-1.0); CREATININE 0.7 mg/dL (0.5-1.3); POTASSIUM 4.7 mmol/L (3.5-5.1); TOTAL PROTEIN, SERUM 6.9 g/dL (6.0-8.3)
[2023-10-30] MEDS: CEFTRIAXONE 1G VIAL IVPB ONE (21:42)
[2023-10-30] MEDS: 0.9%NACL 1000ML 1,000 ML IV SCH (23:50)
[2023-10-30] MEDS: INSULIN HUMULIN R 100 UNIT/ML 3ML SQ SCH (23:55)
[2023-10-31] VITALS (9 sets, daily range): BP systolic 118–166; BP diastolic 47–89; PULSE 57–91; RESP 12–20; O2SAT 94–100
[2023-10-31] MEDS ORDERED: ONDANSETRON 4MG INJ IV PRN
[2023-10-31] MEDS ORDERED: MAGNESIUM 2GM PREMIX 50ML 50 ML IV PRN
[2023-10-31] MEDS ORDERED: DEXTROSE 50%-WATER 50 ML DISP.SYRIN IV PRN
[2023-10-31] MEDS ORDERED: GLUCAGON 1MG KIT 1 MG ML IM PRN
[2023-10-31] MEDS ORDERED: POTASSIUM CHLORIDE 20MEQ/100ML 100 ML IV PRN
[2023-10-31 05:18] LABS: BASOPHILS # (AUTO) 0.06 K/uL (0.00-0.20); BASOPHILS % (AUTO) 0.9 % (0.0-5.0); EOSINOPHILS # (AUTO) 1.52 K/uL (0.00-0.70); EOSINOPHILS % (AUTO) 23.8 % (0.0-8.0); HEMATOCRIT 26.1 % (42-54); IMMATURE GRANULOCYTE ABSOLUTE 0.04 K/uL (0-1); LYMPHOCYTES # (AUTO) 1.2 K/uL (1.0-4.8); LYMPHOCYTES % (AUTO) 18.4 % (21.0-51.0); MEAN CORPUSCULAR HGB CONC 33.3 g/dL (32.0-36.0); MONOCYTES # (AUTO) 0.5 K/uL (0.1-1.0); MONOCYTES % (AUTO) 7.5 % (3.0-13.0); NEUTROPHILS # (AUTO) 3.1 K/uL (1.8-7.7); NEUTROPHILS % (AUTO) 48.8 % (40.0-77.0); PLATELET COUNT (AUTO) 173 K/uL (130-400); RED CELL DISTRIBUTION WIDTH 12.9 % (11.0-15.5); WHITE BLOOD COUNT (AUTO) 6.4 K/uL (4.8-10.8)
[2023-10-31 05:24] LABS: ALBUMIN 2.5 g/dL (3.5-5.0); BILIRUBIN,TOTAL 0.2 mg/dL (0.2-1.0); CREATININE 0.6 mg/dL (0.5-1.3); MAGNESIUM 2.1 mg/dL (1.80-2.40); TOTAL PROTEIN, SERUM 6.2 g/dL (6.0-8.3)
[2023-10-31] MEDS: FAMOTIDINE 20MG VIAL IV SCH (08:54)
[2023-10-31] MEDS: CEFTRIAXONE 1G VIAL IVPB SCH (08:54)
[2023-10-31] MEDS ORDERED: CEFTRIAXONE 1G VIAL 1 GM in 0.9%NACL 50ML 50 ML IV SCH (09:00)
[2023-10-31] MEDS: BALSAM PERU/CASTOR OIL 60 GM TUBE TP SCH (23:20)
[2023-11-01 03:42] VITALS: BP 122/73; PULSE 105; RESP 20
[2023-11-01 05:31] LABS: BASOPHILS # (AUTO) 0.03 K/uL (0.00-0.20); BASOPHILS % (AUTO) 0.5 % (0.0-5.0); EOSINOPHILS # (AUTO) 1.24 K/uL (0.00-0.70); EOSINOPHILS % (AUTO) 18.9 % (0.0-8.0); HEMATOCRIT 24.8 % (42-54); IMMATURE GRANULOCYTE ABSOLUTE 0.03 K/uL (0-1); LYMPHOCYTES # (AUTO) 0.7 K/uL (1.0-4.8); LYMPHOCYTES % (AUTO) 10.8 % (21.0-51.0); MEAN CORPUSCULAR HEMOGLOBIN 30.5 pg (27.0-33.0); MEAN CORPUSCULAR HGB CONC 33.5 g/dL (32.0-36.0); MEAN CORPUSCULAR VOLUME 91.2 fL (79-99); MONOCYTES # (AUTO) 0.6 K/uL (0.1-1.0); NEUTROPHILS % (AUTO) 60.3 % (40.0-77.0); PLATELET COUNT (AUTO) 173 K/uL (130-400); RED BLOOD CELL COUNT(AUTO) 2.72 MIL/uL (4.50-6.20); RED CELL DISTRIBUTION WIDTH 13.2 % (11.0-15.5); WHITE BLOOD COUNT (AUTO) 6.6 K/uL (4.8-10.8)
[2023-11-01 05:46] LABS: CREATININE 0.5 mg/dL (0.5-1.3); PHOSPHORUS 3.1 mg/dL (2.5-4.9); POTASSIUM 4.1 mmol/L (3.5-5.1)
[2023-11-01 07:55] VITALS: BP 132/62; PULSE 66; RESP 18
[2023-11-01 08:00] VITALS: O2SAT 95
[2023-11-01] MEDS ORDERED: CEPH500B PO (11:07)
[2023-11-01 11:48] VITALS: BP 133/82; PULSE 74; RESP 18
== END 2023-11-01 16:10 | disposition home or self-care (01) ==
LOC: EDH 17:53 → EDHIP 23:33 → 3DH 10-31 01:14
PROVIDERS: ADMIT Hospitalist; ATTEND Hospitalist
DX: N39.0 Urinary tract infection, site not specified (principal); E11.9 Type 2 diabetes mellitus without complications; G71.00 Muscular dystrophy, unspecified; D64.9 Anemia, unspecified; E44.0 Moderate protein-calorie malnutrition; E86.0 Dehydration; G93.41 Metabolic encephalopathy; E87.1 Hypo-osmolality and hyponatremia; K59.00 Constipation, unspecified; R13.10 Dysphagia, unspecified; L89.152 Pressure ulcer of sacral region, stage 2; Z93.1 Gastrostomy status; Z74.01 Bed confinement status; Z86.73 Personal history of transient ischemic attack (TIA), and cerebral infarction without residual deficits; Z79.899 Other long term (current) drug therapy
CPT/HCPCS: 96361 ×3; 96365; 99284; 82550; 84484; 80053 ×2; 85025 ×3; 87040 ×2; 87077; 87088; 87186; 82948 ×9; 83605; 81001; 36415 ×3; 71045; 96376 ×2; 96375; 83735 ×2; 82306; 97161; 97530 ×2; 84100; 80048; G0378 ×39; J7030; J0696 ×4; J3490 ×3

== ENCOUNTER 2024-02-27 21:48 | Inpatient (IN) | payer OTHER ==
[~2024-02-27] VITALS: Ht 165.1 cm; Wt 64.2 kg
[2024-02-27 22:37] LABS: BASOPHILS # (AUTO) 0.05 K/uL (0.00-0.20); BASOPHILS % (AUTO) 0.4 % (0.0-5.0); EOSINOPHILS # (AUTO) 0.95 K/uL (0.00-0.70); EOSINOPHILS % (AUTO) 8.3 % (0.0-8.0); HEMATOCRIT 33.9 % (42-54); IMMATURE GRANULOCYTE ABSOLUTE 0.07 K/uL (0-1); LYMPHOCYTES # (AUTO) 3.2 K/uL (1.0-4.8); LYMPHOCYTES % (AUTO) 28.3 % (21.0-51.0); MEAN CORPUSCULAR HEMOGLOBIN 27.5 pg (27.0-33.0); MEAN CORPUSCULAR HGB CONC 33.3 g/dL (32.0-36.0); MEAN CORPUSCULAR VOLUME 82.5 fL (79-99); MONOCYTES # (AUTO) 0.8 K/uL (0.1-1.0); MONOCYTES % (AUTO) 7.4 % (3.0-13.0); NEUTROPHILS # (AUTO) 6.3 K/uL (1.8-7.7); PLATELET COUNT (AUTO) 279 K/uL (130-400); RED BLOOD CELL COUNT(AUTO) 4.11 MIL/uL (4.50-6.20); RED CELL DISTRIBUTION WIDTH 13.3 % (11.0-15.5); WHITE BLOOD COUNT (AUTO) 11.4 K/uL (4.8-10.8)
[2024-02-27 22:58] LABS: CREATININE 0.4 mg/dL (0.5-1.3)
[2024-02-27 23:02] LABS: ALBUMIN 2.2 g/dL (3.5-5.0); BILIRUBIN,TOTAL 0.2 mg/dL (0.2-1.0)
[2024-02-27 23:07] LABS: B-TYPE NATRIURETIC PEPTIDE 62 pg/mL (0-100)
[2024-02-27] MEDS: proPOFol 1000 MG/100 ML IV PRN (23:14)
[2024-02-27] MEDS: rocuRONium bROMide 10MG/1ML 5ML VL IV ONE (23:15)
[2024-02-27] MEDS: FENTanyl 1000MCG+NS 100ML 100 ML IV SCH (23:15)
[2024-02-27] MEDS: ETOMIDATE 20MG VIAL IVP ONE (23:15)
[2024-02-27] MEDS: proPOFol 1000 MG/100 ML 100 ML IV ONE (23:16)
[2024-02-27] MEDS: NOREPINEPHRIN 4MG/NS 250ML 250 ML IV ONE (23:16)
[2024-02-27] MEDS: NOREPINEPHRIN 4MG/NS 250ML 250 ML IV SCH (23:17)
[2024-02-27] MEDS: GLYCOPYRROLATE 0.2 MG/ML 5 ML VIAL IVP SCH (23:18)
[2024-02-27 23:42] VITALS: PULSE 108; O2SAT 98
[2024-02-27 23:46] LABS: APPEARANCE,URINE CLEAR (CLEAR); BILIRUBIN,URINE NEGATIVE (NEGATIVE); COLOR,URINE LIGHT-YELLOW (YELLOW); GLUCOSE, URINE (UA) NEGATIVE (NEGATIVE); KETONES,URINE NEGATIVE (NEGATIVE); LEUKOCYTE ESTERASE ,URINE 500 Leu/uL (NEGATIVE); NITRATE,URINE 2+ (NEGATIVE); OCCULT BLOOD,URINE NEGATIVE (NEGATIVE); PH,URINE 6.5 (5.0-8.0); PROTEIN,URINE 20 mg/dL (NEGATIVE); UROBILINOGEN,URINE 0.2 mg/dL (0.2-1.0)
[2024-02-27 23:54] LABS: ADD UA MICROSCOPIC YES
[2024-02-28] VITALS (113 sets, daily range): BP systolic 76–167; BP diastolic 42–87; PULSE 80–108; RESP 11–22; TEMP 94.1–98.3; O2SAT 96–98
[2024-02-28 00:01] LABS: BACTERIA,URINE Rare /HPF (None Seen); MUCUS,URINE Rare LPF (None Seen)
[2024-02-28 00:16] LABS: INFLUENZA TYPE A Negative For Type A (NEGATIVE); INFLUENZA TYPE B Negative For Type B (NEGATIVE)
[2024-02-28 00:22] LABS: SARS-CoV-2, RNA, NAAT NEGATIVE SARS CoV-2 (NEGATIVE)
[2024-02-28 00:26] LABS: ABG BASE EXCESS -3.1 mmol/L (-2.0-3.0); ABG HCO3 23.4 mmol/L (21.0-28.0); ABG OXYGEN SATURATION 98.3 % (94.0-98.0); ABG PCO2 48 mmHg (35-48); ABG PH 7.304 (7.350-7.450); CARBON MONOXIDE 0 % (0.5-1.5); DEVICE COMMENT JHONNY RM; HHb 1.7; VENT MODE, BG AC (ROOM AIR)
[2024-02-28] MEDS: ALBUTEROL 0.083% 2.5 MG/3 ML INH IH SCH (00:41)
[2024-02-28] MEDS: IpraTROPium 0.5 MG/2.5 ML INH IH SCH (00:41)
[2024-02-28] MEDS: ZOSYN 3.375GM +NS 50ML IVPB ONE (00:42)
[2024-02-28 01:22] LABS: RAPID GROUP A STREP negative (NEGATIVE)
[2024-02-28 01:27] LABS: SARS-CoV-2, RNA, NAAT NEGATIVE SARS CoV-2 (NEGATIVE)
[2024-02-28] MEDS ORDERED: GLUCAGON 1MG KIT 1 MG ML IM PRN (01:30)
[2024-02-28] MEDS ORDERED: ondanSETRON 4MG INJ IV PRN (01:30)
[2024-02-28] MEDS ORDERED: DEXTROSE 50%-WATER 50 ML DISP.SYRIN IV PRN (01:30)
[2024-02-28] MEDS: Solu-medROL 125MG VIAL IVP ONE (01:33)
[2024-02-28] MEDS: Solu-medROL 40MG VIAL IVP SCH ×2 (01:35→14:04)
[2024-02-28] MEDS ORDERED: IOHEXOL 350 MG/ML 100ML INFUS..BTL IV ONE (04:00)
[2024-02-28] MEDS: ZOSYN 3.375GM+NS 50ML IV SCH (04:34)
[2024-02-28] MEDS: 0.9%NACL 1000ML 1,000 ML IV SCH (04:36)
[2024-02-28] MEDS: HEParin 5,000 UNIT VIAL SQ SCH (05:08)
[2024-02-28 06:20] LABS: BASOPHILS # (AUTO) 0.02 K/uL (0.00-0.20); BASOPHILS % (AUTO) 0.2 % (0.0-5.0); EOSINOPHILS # (AUTO) 0.07 K/uL (0.00-0.70); EOSINOPHILS % (AUTO) 0.7 % (0.0-8.0); HEMATOCRIT 33.3 % (42-54); IMMATURE GRANULOCYTE ABSOLUTE 0.06 K/uL (0-1); LYMPHOCYTES # (AUTO) 0.9 K/uL (1.0-4.8); LYMPHOCYTES % (AUTO) 8.2 % (21.0-51.0); MEAN CORPUSCULAR HEMOGLOBIN 27.6 pg (27.0-33.0); MEAN CORPUSCULAR HGB CONC 33.6 g/dL (32.0-36.0); MONOCYTES # (AUTO) 0.4 K/uL (0.1-1.0); MONOCYTES % (AUTO) 3.7 % (3.0-13.0); NEUTROPHILS # (AUTO) 9.1 K/uL (1.8-7.7); NEUTROPHILS % (AUTO) 86.6 % (40.0-77.0); PLATELET COUNT (AUTO) 321 K/uL (130-400); RED BLOOD CELL COUNT(AUTO) 4.06 MIL/uL (4.50-6.20); RED CELL DISTRIBUTION WIDTH 13.2 % (11.0-15.5); WHITE BLOOD COUNT (AUTO) 10.5 K/uL (4.8-10.8)
[2024-02-28 06:34] LABS: ALBUMIN 2.4 g/dL (3.5-5.0); BILIRUBIN,TOTAL 0.4 mg/dL (0.2-1.0); CREATININE 0.6 mg/dL (0.5-1.3); MAGNESIUM 2.2 mg/dL (1.80-2.40); POTASSIUM 3.6 mmol/L (3.5-5.1); THYROID STIMULATING HORMONE 2.76 uIU/mL (0.36-3.74); TOTAL PROTEIN, SERUM 6.4 g/dL (6.0-8.3)
[2024-02-28] MEDS: INSULIN humuLIN R 100 UNIT/ML 3ML SQ SCH (06:51)
[2024-02-28 07:12] LABS: PROTHROMBIN TIME 10.8 SEC (9.6-11.6)
[2024-02-28] MEDS ORDERED: LACTULOSE 20 GM/30 ML UDCUP PO PRN (09:00)
[2024-02-28 09:02] LABS: ABG BASE EXCESS -2.8 mmol/L (-2.0-3.0); ABG HCO3 23.3 mmol/L (21.0-28.0); ABG OXYGEN SATURATION 98.1 % (94.0-98.0); ABG PCO2 46 mmHg (35-48); ABG PH 7.321 (7.350-7.450); CARBON MONOXIDE 0 % (0.5-1.5); HHb 1.9; VENT MODE, BG ACVC (ROOM AIR)
[2024-02-28] MEDS: ARTIFICAL TEARS SOL 15 ML OU SCH (10:29)
[2024-02-28] MEDS: FAMOTIDINE 20MG VIAL IV SCH (10:30)
[2024-02-28] MEDS: CHLORHEXIDINE GLUCONATE 15 ML MOUTHWASH MM SCH (10:41)
[2024-02-28] MEDS ORDERED: LACE ASSESSMENT (SCORE > 11) MISC SCH (12:00)
[2024-02-28] MEDS: PoTASSium chloRIDE 20MEQ/100ML 100 ML IV PRN (13:23)
[2024-02-28] MEDS ORDERED: NUTR1PAC14 PO (15:29)
[2024-02-28] MEDS ORDERED: LATA2.5D14 OP (15:29)
[2024-02-28] MEDS ORDERED: ESOM20SU PO (15:29)
[2024-02-28] MEDS: BALSAM PERU/CASTOR OIL 60 GM TUBE TP SCH (20:10)
[2024-02-29] VITALS (119 sets, daily range): BP systolic 87–168; BP diastolic 38–97; PULSE 50–111; RESP 11–27; TEMP 97–98.6; O2SAT 96–100
[2024-02-29 03:21] LABS: ABG BASE EXCESS -3.5 mmol/L (-2.0-3.0); ABG HCO3 20.8 mmol/L (21.0-28.0); ABG OXYGEN SATURATION 93.4 % (94.0-98.0); ABG PCO2 36 mmHg (35-48); ABG PH 7.385 (7.350-7.450); PO2, ARTERIAL BG 67.4 mmHg (83.0-108.0); VENT MODE, BG AC VC (ROOM AIR)
[2024-02-29 04:18] LABS: BASOPHILS # (AUTO) 0.03 K/uL (0.00-0.20); BASOPHILS % (AUTO) 0.2 % (0.0-5.0); HEMATOCRIT 26.9 % (42-54); IMMATURE GRANULOCYTE ABSOLUTE 0.11 K/uL (0-1); LYMPHOCYTES # (AUTO) 1.2 K/uL (1.0-4.8); LYMPHOCYTES % (AUTO) 7.2 % (21.0-51.0); MEAN CORPUSCULAR HEMOGLOBIN 27.6 pg (27.0-33.0); MEAN CORPUSCULAR HGB CONC 33.8 g/dL (32.0-36.0); MEAN CORPUSCULAR VOLUME 81.5 fL (79-99); MONOCYTES # (AUTO) 0.8 K/uL (0.1-1.0); MONOCYTES % (AUTO) 4.6 % (3.0-13.0); NEUTROPHILS # (AUTO) 14.7 K/uL (1.8-7.7); NEUTROPHILS % (AUTO) 87.3 % (40.0-77.0); PLATELET COUNT (AUTO) 229 K/uL (130-400); RED CELL DISTRIBUTION WIDTH 13.6 % (11.0-15.5); WHITE BLOOD COUNT (AUTO) 16.8 K/uL (4.8-10.8)
[2024-02-29 04:34] LABS: CREATININE 0.5 mg/dL (0.5-1.3); MAGNESIUM 2.3 mg/dL (1.80-2.40); PHOSPHORUS 3.4 mg/dL (2.5-4.9); POTASSIUM 3.5 mmol/L (3.5-5.1)
[2024-02-29 05:32] LABS: BASOPHILS # (AUTO) 0.02 K/uL (0.00-0.20); BASOPHILS % (AUTO) 0.1 % (0.0-5.0); EOSINOPHILS # (AUTO) 0.01 K/uL (0.00-0.70); EOSINOPHILS % (AUTO) 0.1 % (0.0-8.0); HEMATOCRIT 26.1 % (42-54); IMMATURE GRANULOCYTE ABSOLUTE 0.07 K/uL (0-1); MEAN CORPUSCULAR HEMOGLOBIN 27.5 pg (27.0-33.0); MEAN CORPUSCULAR HGB CONC 33.3 g/dL (32.0-36.0); MEAN CORPUSCULAR VOLUME 82.6 fL (79-99); MONOCYTES # (AUTO) 0.6 K/uL (0.1-1.0); MONOCYTES % (AUTO) 4.3 % (3.0-13.0); PLATELET COUNT (AUTO) 199 K/uL (130-400); RED BLOOD CELL COUNT(AUTO) 3.16 MIL/uL (4.50-6.20); RED CELL DISTRIBUTION WIDTH 13.4 % (11.0-15.5); WHITE BLOOD COUNT (AUTO) 13.6 K/uL (4.8-10.8)
[2024-02-29 13:15] LABS: ABG BASE EXCESS -4.7 mmol/L (-2.0-3.0); ABG HCO3 19.1 mmol/L (21.0-28.0); ABG OXYGEN SATURATION 98.5 % (94.0-98.0); ABG PCO2 30 mmHg (35-48); CARBON MONOXIDE 0.1 % (0.5-1.5); HHb 1.5; PO2, ARTERIAL BG 141.4 mmHg (83.0-108.0)
[2024-02-29] MEDS: IpraTROPium 0.5 MG/2.5 ML INH IH STA (15:23)
[2024-02-29] MEDS: acetylCYSTeine10% 4ML VIAL IH ONE (15:23)
[2024-02-29] MEDS ORDERED: monteLUKAST sodIUM 10 MG TAB GT SCH (18:30)
[2024-02-29] MEDS: acetylCYSTeine10% 4ML VIAL IH SCH (19:05)
[2024-02-29] MEDS: furoSEMIDE 20MG VIAL IV ONE ×2 (19:21→20:37)
[2024-02-29] MEDS: PANTOPrazole 40 MG/VIAL IVP SCH (20:37)
[2024-02-29] MEDS: Solu-medROL 40MG VIAL IVP SCH (20:37)
[2024-02-29] MEDS ORDERED: LATANOPROST 2.5 ML DROPS OP SCH (21:00)
[2024-02-29] MEDS: LATANOPROST 2.5 ML DROPS OP SCH (21:56)
[2024-03-01] VITALS (32 sets, daily range): BP systolic 123–162; BP diastolic 38–76; PULSE 61–94; RESP 10–22; TEMP 97.7–98.3; O2SAT 98–100
[2024-03-01 04:03] LABS: BASOPHILS # (AUTO) 0.02 K/uL (0.00-0.20); BASOPHILS % (AUTO) 0.2 % (0.0-5.0); HEMATOCRIT 26.1 % (42-54); IMMATURE GRANULOCYTE ABSOLUTE 0.09 K/uL (0-1); LYMPHOCYTES # (AUTO) 0.6 K/uL (1.0-4.8); MEAN CORPUSCULAR HGB CONC 32.2 g/dL (32.0-36.0); MEAN CORPUSCULAR VOLUME 83.9 fL (79-99); MONOCYTES # (AUTO) 0.4 K/uL (0.1-1.0); MONOCYTES % (AUTO) 4.4 % (3.0-13.0); NEUTROPHILS # (AUTO) 8.2 K/uL (1.8-7.7); NEUTROPHILS % (AUTO) 88.4 % (40.0-77.0); PLATELET COUNT (AUTO) 200 K/uL (130-400); RED BLOOD CELL COUNT(AUTO) 3.11 MIL/uL (4.50-6.20); RED CELL DISTRIBUTION WIDTH 14.1 % (11.0-15.5); WHITE BLOOD COUNT (AUTO) 9.3 K/uL (4.8-10.8)
[2024-03-01 04:15] LABS: BILIRUBIN,TOTAL 0.4 mg/dL (0.2-1.0); CREATININE 0.5 mg/dL (0.5-1.3); MAGNESIUM 2.3 mg/dL (1.80-2.40); PHOSPHORUS 3.1 mg/dL (2.5-4.9); POTASSIUM 3.9 mmol/L (3.5-5.1); TOTAL PROTEIN, SERUM 5.3 g/dL (6.0-8.3)
[2024-03-01 04:35] LABS: ABG BASE EXCESS -7.2 mmol/L (-2.0-3.0); ABG HCO3 16.8 mmol/L (21.0-28.0); ABG OXYGEN SATURATION 98.8 % (94.0-98.0); ABG PCO2 30 mmHg (35-48); ABG PH 7.361 (7.350-7.450); PO2, ARTERIAL BG 145.9 mmHg (83.0-108.0); VENT MODE, BG AM,40 (ROOM AIR)
[2024-03-01] MEDS ORDERED: CALCIUM HMB PO SCH (08:00)
[2024-03-01] MEDS ORDERED: GLUTAMINE PO SCH (08:00)
[2024-03-01] MEDS ORDERED: ARGININE PO SCH (08:00)
[2024-03-01] MEDS: ENOXAPARIN SODIUM 40 MG/0.4 ML SYRINGE SQ SCH (10:43)
[2024-03-01] MEDS: finaSTERide 5 MG TABLET PEG SCH (10:43)
[2024-03-01] MEDS: atorVAStatin 40 MG TABLET PEG SCH (10:43)
[2024-03-01] MEDS: ASPIRIN 81 MG EC TAB PEG SCH (10:43)
[2024-03-01] MEDS ORDERED: COMPOUND IV REFRIGERATED 1 EACH IVSOLN MISC PRN (11:30)
[2024-03-01] MEDS: SODIUM BICARB 150 MEQ in DEXTROSE 5%-WATER 1,000 ML IVP SCH (12:30)
[2024-03-01] MEDS: monteLUKAST sodIUM 10 MG TAB GT SCH (22:06)
[2024-03-02] VITALS (22 sets, daily range): BP systolic 120–165; BP diastolic 47–83; PULSE 74–92; RESP 17–36; TEMP 97.7–99.9; O2SAT 94–100
[2024-03-02 04:17] LABS: BASOPHILS # (AUTO) 0.01 K/uL (0.00-0.20); BASOPHILS % (AUTO) 0.1 % (0.0-5.0); HEMATOCRIT 27.9 % (42-54); IMMATURE GRANULOCYTE ABSOLUTE 0.09 K/uL (0-1); LYMPHOCYTES # (AUTO) 0.6 K/uL (1.0-4.8); LYMPHOCYTES % (AUTO) 5.5 % (21.0-51.0); MEAN CORPUSCULAR HEMOGLOBIN 26.9 pg (27.0-33.0); MEAN CORPUSCULAR HGB CONC 32.3 g/dL (32.0-36.0); MEAN CORPUSCULAR VOLUME 83.5 fL (79-99); MONOCYTES # (AUTO) 0.4 K/uL (0.1-1.0); NEUTROPHILS # (AUTO) 9.5 K/uL (1.8-7.7); NEUTROPHILS % (AUTO) 89.6 % (40.0-77.0); PLATELET COUNT (AUTO) 200 K/uL (130-400); RED BLOOD CELL COUNT(AUTO) 3.34 MIL/uL (4.50-6.20); RED CELL DISTRIBUTION WIDTH 14.3 % (11.0-15.5); WHITE BLOOD COUNT (AUTO) 10.7 K/uL (4.8-10.8)
[2024-03-02 04:41] LABS: HEMOGLOBIN A1C 6.2 % (4.0-6.0)
[2024-03-02 04:42] LABS: BILIRUBIN,TOTAL 0.3 mg/dL (0.2-1.0); CREATININE 0.7 mg/dL (0.5-1.3); POTASSIUM 3.4 mmol/L (3.5-5.1)
[2024-03-02] MEDS: PoTASSium chl 10% ELIXIR 20MEQ 20 MEQ/15 ML UDCUP PO PRN (09:26)
[2024-03-02] MEDS: furoSEMIDE 20MG VIAL IV ONE ×2 (10:17→17:05)
[2024-03-02] MEDS: INSULIN GLARgine 100 UNITS/ML 10 ML VIAL SQ SCH (10:18)
[2024-03-02 10:40] LABS: ABG HCO3 24.9 mmol/L (21.0-28.0); ABG OXYGEN SATURATION 86.8 % (94.0-98.0); ABG PCO2 37 mmHg (35-48); ABG PH 7.449 (7.350-7.450); CARBON MONOXIDE 0.1 % (0.5-1.5); DEVICE COMMENT LR RN GISELLA; HHb 13.2; PO2, ARTERIAL BG 48.1 mmHg (83.0-108.0); VENT MODE, BG NC (ROOM AIR)
[2024-03-02] MEDS ORDERED: COMPOUND IV MISC 1 EACH IVSOLN MISC PRN (13:00)
[2024-03-02] MEDS: TIGECYCLINE IV ONE (13:18)
[2024-03-02] MEDS: [UNRECOGNIZED DRUG - OTHER] IV ONE (13:18)
[2024-03-03] VITALS (32 sets, daily range): BP systolic 101–182; BP diastolic 36–84; PULSE 71–94; RESP 18–48; TEMP 98.4–98.8; O2SAT 96–100
[2024-03-03] MEDS: TIGECYCLINE IV SCH (02:10)
[2024-03-03] MEDS: [UNRECOGNIZED DRUG - OTHER] IV SCH (02:10)
[2024-03-03 04:30] LABS: ABG HCO3 28.2 mmol/L (21.0-28.0); ABG OXYGEN SATURATION 92.3 % (94.0-98.0); ABG PCO2 34 mmHg (35-48); ABG PH 7.543 (7.350-7.450); DEVICE COMMENT RR; PO2, ARTERIAL BG 55.2 mmHg (83.0-108.0); VENT MODE, BG OXYMIZER 10L (ROOM AIR)
[2024-03-03 04:32] LABS: MEAN CORPUSCULAR HEMOGLOBIN 26.2 pg (27.0-33.0); MEAN CORPUSCULAR HGB CONC 31.7 g/dL (32.0-36.0); MEAN CORPUSCULAR VOLUME 82.6 fL (79-99); RED BLOOD CELL COUNT(AUTO) 3.51 MIL/uL (4.50-6.20); RED CELL DISTRIBUTION WIDTH 14.4 % (11.0-15.5); WHITE BLOOD COUNT (AUTO) 9.8 K/uL (4.8-10.8)
[2024-03-03 04:56] LABS: ALBUMIN 1.7 g/dL (3.5-5.0); BILIRUBIN,TOTAL 0.5 mg/dL (0.2-1.0); CREATININE 0.6 mg/dL (0.5-1.3); MAGNESIUM 1.8 mg/dL (1.80-2.40); PHOSPHORUS 1.7 mg/dL (2.5-4.9); POTASSIUM 3.8 mmol/L (3.5-5.1); TOTAL PROTEIN, SERUM 5.6 g/dL (6.0-8.3)
[2024-03-03] MEDS: MAGNESIUM 2GM PREMIX 50ML 50 ML IV PRN (05:22)
[2024-03-03] MEDS: furoSEMIDE 20MG VIAL IV SCH (07:53)
[2024-03-03] MEDS: amLODIPine 5 MG TAB PO SCH (07:59)
[2024-03-03] MEDS ORDERED: INSULIN GLARgine 100 UNITS/ML 10 ML VIAL SQ ONE (09:00)
[2024-03-03] MEDS: poTASSium PHOS 15 mMOL+NS250ML 250 ML IV PRN (11:57)
[2024-03-04] VITALS (38 sets, daily range): BP systolic 104–165; BP diastolic 43–100; PULSE 72–93; RESP 19–60; TEMP 97.1–98.2; O2SAT 8–99
[2024-03-04 04:10] LABS: EOSINOPHILS # (AUTO) 0.03 K/uL (0.00-0.70); EOSINOPHILS % (AUTO) 0.2 % (0.0-8.0); HEMATOCRIT 31.1 % (42-54); IMMATURE GRANULOCYTE ABSOLUTE 0.08 K/uL (0-1); LYMPHOCYTES # (AUTO) 0.7 K/uL (1.0-4.8); LYMPHOCYTES % (AUTO) 4.5 % (21.0-51.0); MEAN CORPUSCULAR HGB CONC 32.2 g/dL (32.0-36.0); MEAN CORPUSCULAR VOLUME 83.8 fL (79-99); MONOCYTES # (AUTO) 0.3 K/uL (0.1-1.0); MONOCYTES % (AUTO) 1.8 % (3.0-13.0); NEUTROPHILS # (AUTO) 14.9 K/uL (1.8-7.7); PLATELET COUNT (AUTO) 182 K/uL (130-400); RED BLOOD CELL COUNT(AUTO) 3.71 MIL/uL (4.50-6.20); RED CELL DISTRIBUTION WIDTH 14.6 % (11.0-15.5)
[2024-03-04 04:26] LABS: CREATININE 0.9 mg/dL (0.5-1.3); POTASSIUM 3.5 mmol/L (3.5-5.1)
[2024-03-04 04:39] LABS: B-TYPE NATRIURETIC PEPTIDE 553 pg/mL (0-100)
[2024-03-04] MEDS: acetylCYSTeine10% 4ML VIAL IH SCH (11:30)
[2024-03-04] MEDS: metoLAZONE 2.5 MG TABLET PO SCH (19:48)
[2024-03-05] VITALS (50 sets, daily range): BP systolic 95–140; BP diastolic 39–76; PULSE 69–116; RESP 18–44; TEMP 98.2–98.9; O2SAT 8–100
[2024-03-05 04:03] LABS: BASOPHILS # (AUTO) 0.13 K/uL (0.00-0.20); BASOPHILS % (AUTO) 0.6 % (0.0-5.0); HEMATOCRIT 30.8 % (42-54); IMMATURE GRANULOCYTE ABSOLUTE 0.13 K/uL (0-1); LYMPHOCYTES # (AUTO) 0.8 K/uL (1.0-4.8); MEAN CORPUSCULAR HEMOGLOBIN 26.7 pg (27.0-33.0); MEAN CORPUSCULAR HGB CONC 32.1 g/dL (32.0-36.0); MONOCYTES # (AUTO) 0.3 K/uL (0.1-1.0); MONOCYTES % (AUTO) 1.3 % (3.0-13.0); NEUTROPHILS # (AUTO) 19.5 K/uL (1.8-7.7); NEUTROPHILS % (AUTO) 93.5 % (40.0-77.0); PLATELET COUNT (AUTO) 184 K/uL (130-400); RED BLOOD CELL COUNT(AUTO) 3.71 MIL/uL (4.50-6.20); RED CELL DISTRIBUTION WIDTH 14.7 % (11.0-15.5); WHITE BLOOD COUNT (AUTO) 20.9 K/uL (4.8-10.8)
[2024-03-05 04:19] LABS: CREATININE 1.1 mg/dL (0.5-1.3); POTASSIUM 3.2 mmol/L (3.5-5.1)
[2024-03-05] MEDS: LACTATED RINGERS 1000ML IV SCH (14:08)
[2024-03-06] VITALS (31 sets, daily range): BP systolic 95–139; BP diastolic 36–65; PULSE 79–110; RESP 18–40; TEMP 97.9–99.2; O2SAT 92–100
[2024-03-06 03:49] LABS: BASOPHILS # (AUTO) 0.04 K/uL (0.00-0.20); BASOPHILS % (AUTO) 0.2 % (0.0-5.0); IMMATURE GRANULOCYTE ABSOLUTE 0.17 K/uL (0-1); LYMPHOCYTES # (AUTO) 1.9 K/uL (1.0-4.8); LYMPHOCYTES % (AUTO) 8.2 % (21.0-51.0); MEAN CORPUSCULAR HEMOGLOBIN 26.4 pg (27.0-33.0); MEAN CORPUSCULAR HGB CONC 30.9 g/dL (32.0-36.0); MEAN CORPUSCULAR VOLUME 85.4 fL (79-99); MONOCYTES # (AUTO) 0.6 K/uL (0.1-1.0); MONOCYTES % (AUTO) 2.8 % (3.0-13.0); NEUTROPHILS % (AUTO) 88.1 % (40.0-77.0); PLATELET COUNT (AUTO) 178 K/uL (130-400); RED BLOOD CELL COUNT(AUTO) 3.98 MIL/uL (4.50-6.20); RED CELL DISTRIBUTION WIDTH 15.2 % (11.0-15.5); WHITE BLOOD COUNT (AUTO) 22.7 K/uL (4.8-10.8)
[2024-03-06 04:04] LABS: CREATININE 1.1 mg/dL (0.5-1.3); POTASSIUM 4.6 mmol/L (3.5-5.1)
[2024-03-06] MEDS: DEXTROSE 5%-WATER 1,000 ML IV SCH (11:13)
[2024-03-06] MEDS ORDERED: DEXTROSE 5%-WATER 1,000 ML IV SCH (11:30)
== END 2024-03-06 22:00 | DRG 871 ==
LOC: EDH 21:48 → EDHIP 02-28 01:23 → 2CV 02-28 05:22 → 2CH 02-29 18:45 → 2DH 03-01 14:38 → 2CH 03-02 18:00
PROVIDERS: ADMIT Internal Medicine; ATTEND Internal Medicine
PROC: 0BH17EZ Insertion of Endotracheal Airway into Trachea, Via Natural or Artificial Opening (ICD-10-PCS; principal; 2024-02-27)
PROC: 5A1945Z Respiratory Ventilation, 24-96 Consecutive Hours (ICD-10-PCS; 2024-02-27)
PROC: 02HV33Z Insertion of Infusion Device into Superior Vena Cava, Percutaneous Approach (ICD-10-PCS; 2024-02-28)
PROC: B548ZZA Ultrasonography of Superior Vena Cava, Guidance (ICD-10-PCS; 2024-02-28)
PROC: 5A09357 Assistance with Respiratory Ventilation, Less than 24 Consecutive Hours, Continuous Positive Airway Pressure (ICD-10-PCS; 2024-02-29)
DX: A41.9 Sepsis, unspecified organism (principal); J15.69 Pneumonia due to other Gram-negative bacteria; J69.0 Pneumonitis due to inhalation of food and vomit; J96.01 Acute respiratory failure with hypoxia; E44.0 Moderate protein-calorie malnutrition; N30.00 Acute cystitis without hematuria; E87.0 Hyperosmolality and hypernatremia; E87.20 Acidosis, unspecified; Z16.24 Resistance to multiple antibiotics; N40.0 Benign prostatic hyperplasia without lower urinary tract symptoms; Z20.822 Contact with and (suspected) exposure to COVID-19; R13.10 Dysphagia, unspecified; E11.65 Type 2 diabetes mellitus with hyperglycemia; E78.5 Hyperlipidemia, unspecified; G71.00 Muscular dystrophy, unspecified; D64.9 Anemia, unspecified; B96.5 Pseudomonas (aeruginosa) (mallei) (pseudomallei) as the cause of diseases classified elsewhere; E86.9 Volume depletion, unspecified; E87.6 Hypokalemia; F03.90 Unspecified dementia, unspecified severity, without behavioral disturbance, psychotic disturbance, mood disturbance, and anxiety; I11.0 Hypertensive heart disease with heart failure; I35.1 Nonrheumatic aortic (valve) insufficiency; Z66 Do not resuscitate; B96.83 Acinetobacter baumannii as the cause of diseases classified elsewhere; R23.8 Other skin changes; I50.9 Heart failure, unspecified; Z83.3 Family history of diabetes mellitus; Z74.01 Bed confinement status; Z82.49 Family history of ischemic heart disease and other diseases of the circulatory system; I69.391 Dysphagia following cerebral infarction; Z82.5 Family history of asthma and other chronic lower respiratory diseases; Z93.1 Gastrostomy status; Z68.23 Body mass index [BMI] 23.0-23.9, adult
CPT/HCPCS: 31500; 36415; 36556; 36600; 71045; 71250; 76770; 80048; 80053; 81001; 82010; 82435; 82550; 82803; 82947; 82948; 83036; 83605; 83735; 83880; 83930; 84100; 84132; 84145; 84295; 84443; 84484; 85018; 85025; 85027; 85378; 85610; 87040; 87071; 87086; 87186; 87205; 87635; 87804; 87880; 93005; 93306; 93356; 93970; 94002; 94003; 94150; 94640; 94664; 94667; 94668; C1751; C1894; G0378; J1644; J1650; J1815; J1940; J2470; J2543; J2704; J2919; J3010; J3243; J3475; J3480; J3490; J7070; J7608; Q9967; A9900